=== PATIENT | male | born 1975 | race African-American/Black ===

== ENCOUNTER 2019-07-31 10:00 | Emergency (ER) | payer MEDICAID ==
[~2019-07-31] VITALS: Ht 170.2 cm; Wt 57.0 kg
[2019-07-31] MEDS ORDERED: KETOROLAC 30MG/ML VIAL IV STA (10:26)
[2019-07-31 11:12] LABS: BASOPHILS % 0.2 % (0.0-2.0); EOSINOPHILS % 0.4 % (0.0-5.0); HEMATOCRIT. 40.2 % (42.0-52.0); HEMOGLOBIN. 13.5 g/dL (14.0-18.0); LYMPHOCYTES % 9.6 % (20.0-50.0); MEAN CORPUSCULAR HEMOGLOBIN 30.6 pg (28.0-32.0); MEAN CORPUSCULAR VOLUME 90.8 fL (80.0-94.0); MEAN PLATELET VOLUME 7.2 fl (7.4-10.4); NEUTROPHILS % 82.8 % (40.0-76.0); PLATELET 270 x1000/uL (130-400); RED BLOOD CELL COUNT 4.42 mill/uL (4.7-6.1); RED CELL DISTRIBUTION WIDTH 14.4 % (11.6-14.6)
[2019-07-31 11:14] LABS: CHLORIDE 104 mEq/L (98-107)
[2019-07-31 12:10] LABS: PROTHROMBIN TIME 10.8 sec (9.6-11.0)
[2019-07-31] MEDS ORDERED: ONDANSETRON HCL 4MG TABLET PO ONE (13:00)
[2019-07-31] MEDS ORDERED: AZITHROMYCIN 500 MG TABLET PO ONE (13:00)
[2019-07-31 13:17] VITALS: BP 114/64
== END 2019-07-31 13:16 | disposition home or self-care (01) ==
LOC: ER 10:00
DX: N45.2 Orchitis (principal)
CPT/HCPCS: 36415; 74176; 76870; 80053; 83690; 85025; 85610; 93976; 96374; 99284; J1885